=== PATIENT | male | born 1970 | race Caucasian/White ===

== ENCOUNTER 2022-02-18 13:18 | Outpatient (CLI) | payer OTHER, SELFPAY ==
--- NOTE | ~2022-02-18 | PE_ITS ---
EXAMINATION: PET_PETPSMAST_PT DATE: 02/18/2022 15:40 INDICATION: Malignant neoplasm of prostate. Increased PSA. TECHNIQUE: 10.37 mCi of piflufolastat F-18 was administered intravenously. Low dose computed tomograp hy (CT) images were acquired from the base of the brain to the proximal thighs for attenuation correc tion and anatomic localization. Automated exposure control was employed. Dose-length product (DLP) wa s 887 mGy-cm. Positron emission tomography (PET) images were acquired in the same distribution. COMPARISON: None FINDINGS: Head/neck: There are no pathologically enlarged lymph nodes. There is increased activity in the glott is without abnormal CT correlate, likely physiologic. Chest: There is mild emphysema. Calcified right hilar lymph nodes are consistent with old granulomato us disease. There is mild scarring at the lung apices. No pleural effusion. The heart size is normal. No pericardial effusion. There are coronary artery calcifications. Abdomen/pelvis/proximal thighs: The liver and gallbladder are normal. Calcifications in the spleen ar e consistent with old granulomatous disease. The pancreas, adrenal glands, and right kidney are roshan l. There is a 9 mm cyst in left kidney. There is no urolithiasis. There is diverticulosis of the colo n without evidence of diverticulitis. There are no dilated loops of bowel. The appendix is normal. Th ere is a 2.5 x 1.8 cm left external iliac node. There is no free intraperitoneal fluid. There is a le ft inguinal hernia containing fat. There are no sclerotic lesions of bone. IMPRESSION: 1. Enlarged left external iliac node without increased activity suspicious for metastatic disease. Reviewed, dictated and finalized at location A. S OPERATIONS
== END 2022-02-18 13:19 | disposition home or self-care (01) ==
PROVIDERS: PCP Urology; Visit Provider Urology
DX: C61 Malignant neoplasm of prostate (principal)
CPT/HCPCS: 78815; A9595

== ENCOUNTER 2024-10-13 13:42 | Outpatient (CLI) | payer OTHER, SELFPAY ==
--- NOTE | ~2024-10-13 | PE_ITS ---
EXAMINATION: PET_PETPSMAST_PT DATE: 10/13/2024 15:38 INDICATION: Prostate cancer TECHNIQUE: 5.109 mCi of Illucix Ga-[id number]) was administered i.v. Low dose computed rachel graphy (CT) images were acquired from the base of the brain to the base of the brain to the proximal thighs for attenuation correction and anatomic localization. Positron emission tomography (PET) image s were acquired in the same distribution beginning 63 minutes after injection. Images including fused PET/CT images were reconstructed in axial, coronal, and sagittal planes. Automated exposure control technique was employed. The dose-length product was 1284.43mGy-cm. COMPARISON: 06/19/2021 FINDINGS: Head/neck: Typical pattern of symmetric physiologic increased activity in the lacrimal, parotid and submandibula r glands as well as along the mucosa of the nasal and oral cavities, pharynx and hypopharynx. No path ologically enlarged cervical lymphadenopathy or suspicious foci of increased uptake in the visualized head or neck. Chest: Mild emphysema with dependent atelectasis in both lungs. No suspicious pulmonary nodules pleural effu cl mild cardiomegaly. Atherosclerotic coronary artery calcifications. There is subendocardial fat a long the lateral wall of the left ventricle consistent with sequela of chronic infarct. No pericardia l effusion. Calcified right hilar lymph nodes consistent with old granulomatous disease. No pathologi arlyn enlarged or PSMA avid thoracic lymphadenopathy. Abdomen/pelvis/proximal thighs: Physiologic renal accumulation and excretion of activity in the kidneys, bladder and along portions o f ureters. Normal degree and slightly heterogenous pattern of increased uptake throughout the liver a nd spleen without radiologic correlate or dominant PSMA avid lesion. The gallbladder, pancreas and bi lateral adrenal glands are normal. Moderate uptake scattered throughout the bowels with typical duode nal and proximal jejunal predominance and without radiologic correlate, also likely physiologic. Mode rate sized left inguinal hernia. No other abnormal foci of increased uptake or pathologically enlarge d lymphadenopathy in the abdomen, pelvis or proximal thighs. Musculoskeletal: Moderate degenerative skeletal changes in the lower cervical spine at the bilateral acromioclavicular joints. Otherwise mild scattered degenerative skeletal changes. No suspicious lytic, blastic or abno rmally PSMA avid bone lesions. IMPRESSION: 1. No PSMA avid lesions suspicious for residual or metastatic disease. Reviewed, dictated and finalized at location A.
--- OUTSIDE RECORDS SUMMARY | 2024-10-13 13:45 | XMS_ITS | Encounter Summary ---
Author Organization [facility] Address [address] [place] [address] Care Team Providers Care Dispatcher [employer] Disposal Name Role Phone Anni Medina MD Primary Care Provider [phone] Encounter Details Date Type Department Care Team (Late st Contact Info) Description 10/04/2024 Results Follow-Up [facility] [place] [address] [employer] [place] [address] Anni Medina MD [address] [place] [address] [address] LUNG SCREENING (LDCT BASELINE OR ANNUAL) Social History Tobacco Use Types Packs/Day Years Used Date Smoking Tobacco: Every Day Cigarettes 1 40 Smokeless Tobacco: Never Alcohol Use Standard Drinks/Week Comments Not Currently 0 (1 standard drink = 0.6 oz pur e alcohol) Sex and Gender Information Value Date Recorded Sex Assigned at Not on file Legal Sex Male 4:56 AM CDT Gender Identity Not on file Sexual Orientation Not on file documented as of this encounter Miscellaneous Notes * Result Encounter Note - Mildred sEtrada RN - 10/05/2024 8:30 AM CDT Called patient and relayed message regarding CT results. Patient verbalized understanding. documented in this encounter Plan of Treatment Not on file documented as of this encounter Visit Diagnoses Not on filedocumented in this encounter Care Teams Dispatcher [employer] Disposal Relationship Specialty Start Date End Date Anni Medina MD [address] [place] [address] [place] [address] PCP - General Internal Medicine 08/20/23 documented as of this encounter
--- OUTSIDE RECORDS SUMMARY | 2024-10-13 13:45 | XMS_ITS | Clinical Summary ---
Author Organization [facility] [place] ONLY Address [address] [place] [address] Care Team Providers Care Ice Maker Name Role Phone Anni Medina MD Primary Care Provider [phone] Allergies No known active allergies Medications aspirin (MELITA CHEWABLE) 81 mg Tablet, Chewable Take 81 mg by mouth daily. 3 Active umeclidinium-vi lanteroL (ANORO ELLIPTA) 62.5-25 mcg/actuation Disk with DeviceIndicatio ns:Pulmonary emphysema, unspecified emphysema type (CMS/HCC) Take 1 Puff by inhalation daily. 180 Each 3 4 Active cholecalciferol , Vitamin D3, 50 mcg (2,000 unit) Tablet Take by mouth. Ac tive atorvastatin (LIPITOR) 80 mg tablet Take 1 Tablet (80 mg) by mouth daily. 90 Tablet 5 Active atorvastatin (LIPITOR) 80 mg tablet Take 1 Tablet (80 mg) by mouth daily. 90 Tablet 5 10/06/19 25 Discontin ued(Reord er) Active Problems Problem Noted Date Diagnosed Date Low vitamin B12 level 10/05/2024 Obesity (BMI 30.0-34.9) 10/05/2024 Tubular adenoma of colon 02/01/2024 Overview (02/01/2024): Colonoscopy 01/30/2026: 4 transverse and 2 sigmoid colon- adenomatous polyps 23-polyvalent pneumococcal polysaccharide vaccin e declined 02/24/2023 Atherosclerosis of [place] co ronary artery of [place] heart without angina pectoris 08/21/2022 Overview (02/24/2023): Noted on CT lungs 08/2022 STEMI 04/2022. Stent in place. Pulmonary emphysema 08/21/2022 Multiple subsolid lung nodules less than 6 mm in diameter 08/21/2022 Prostate cancer 08/21/2022 Overview (08/21/2022): Under care Dr. Coleman with injections and surveillance of PSA trending up as of 08/2022 total prostatectomy. Varicose veins of left leg with edema 07/29/2022 STEMI (ST elevation myocardial infarction) 04/09 Tobacco use 04/30/2021 Resolved Problems Problem Noted Date Diagnosed Date Resolved Date Colon cancer screening declined 02/24/2023 02/01/2024 Leg edema, left 07/29/2022 02/24/2023 Tinea pedis of both feet 07/29/2022 Ingrown toenail 07/29/2022 02/24/2023 Onychomycosis 07/29/2022 02/24/2023 Smoker 07/29/2022 02/24/2023 Encounters Date Type Department Care Team Description 10/11/2024 External Device Data STL ABSTRACTION Provider, Abstract 10/05/2024 1:00 PM CDT Procedure visit [facility] [place] [place] [address] [place] [phone] Issue of repeat prescription (Primary Dx) 10/05/2024 Refill [facility] [place] [address] [place] [address] Anni Medina MD 10/04/2024 2:11 PM CDT - 10/04/2024 11:59 PM CDT Hospital Encounter [facility] CT Scan [address] [address] Anni Medina MD Discharge Disposition: Home or Self Care 10/04/2024 Results Follow-Up [facility] [place] [address] [place] [phone] LUNG SCREENING (LDCT BASELINE OR ANNUAL) 09/20/2024 External Device Data STL ABSTRACTION Provider, Abstract 09/19/2024 External Device Data STL ABSTRACTION Provider, Abstract 08/22/2024 External Device Data STL ABSTRACTION Provider, Abstract 08/21/2024 Results Follow-Up [facility] [employer] [address] [place] [address] nAni Medina MD TSH, LIPID PANEL, VITAMIN B12 LEVEL, Additional followed-up results: 5 08/18/2024 11:20 AM CDT Office Visit [facility] [place] [address] [address] [place] [address] Screening for condition; Bilateral arm pain; Muscle cramping; Low vitamin D level 07/27/2024 External Device Data STL ABSTRACTION Provider, Abstract 07/26/2024 External Device Data STL ABSTRACTION Provider, Abstract from Last 3 Months Immunizations Immunization Administration Dates Next Due (ADACEL/BOOSTRIX)(10 YR UP) TDAP VACCINE, 0.5ML, IM 08/16/2018 Family History Medical History Relation Name Comments No Known Problems Brother No Known Problems Mother No Known Problems Sister Colon Cancer Neg Hx Relation Name Status Comments Brother Alive Father josette Maternal Grandfather Maternal Grandmother Mother Alive Paternal Grandfather Paternal Grandmother Sister Alive Social History Tobacco Use Types Packs/Day Years Used Date Smoking Tobacco: Every Day Cigarettes 1 40 Smokeless Tobacco: Never Tobacco Cessation:Ready to Q uit: Not Asked; Counseling Given: Not Answered Alcohol Use Standard Drinks/Week Comments Not Currently 0 (1 standard drink = 0.6 oz pur e alcohol) Sex and Gender Information Value Date Recorded Sex Assigned at Not on file Legal Sex Male 4:56 AM CDT Gender Identity Not on file Sexual Orientation Not on file Last Filed Vital Signs Vital Sign Reading Time Taken Comments Blood Pressure 112/60 08/18/2024 11:18 AM CDT Pulse 66 02/24/2024 3:03 PM PORTER MARINA Temperature 36.4 C (97.6 F) 02/24/2024 3:03 PM PORTER MARINA Respiratory Rate 18 02/24/2024 3:03 PM PORTER MARINA Oxygen Saturation 98% 02/24/2024 3:03 PM PORTER MARINA Inhaled Oxygen Concentration - - Weight 103.4 kg (228 lb) 08/18/2024 11:18 AM CDT Height 177.8 cm (5' 10) 08/18/2024 11:18 AM CDT Body Mass Index 32.71 08/18/2024 11:18 AM CDT Plan of Treatment Health Maintenance Due Date Last Done Comments HEPATITIS B VACCINES (1 of 3 - 19+ 3-dose series) 1991 FIT-DNA Q 3 years 2017 FIT/FOBT Q 1 year 2017 Flex Sig/CT Colonography Q 5 years 2017 ZOSTER VACCINE (1 of 2) 2022 Preventative Visit- Commercial 03/08/2024 08/16/2018 INFLUENZA VACCINE (#1) 2024 Pre-Diabetes and Diabetes Screening 05/27/202505/27 Lung Cancer Screening 10/04/2025 10/04/2024 , 09/17/2023, 08/17/2022 COLORECTAL SCREENING 01/27/2027 01/28/2024, 01/28/20 24 Colorectal Cancer Screening 01/27/2027 DTAP/TDAP/TD VACCINES (2 - T d or Tdap) 08/16/2028 08/16/2018 Procedures Procedure Name Priority Date/Time Associated Diagnosis Comments CT LUNG SCREENING (LDCT BASELINE OR ANNUAL) Routine 10/04/2024 2:28 PM CDT Smoking history VITAMIN D 25 HYDROXY Routine 08/18/2024 11:04 AM CDT Low vitamin D level CK Routine 08/18/2024 11:04 AM CDT Muscle cramping MAGNESIUM LEVEL Routine 08/18/2024 11:04 AM CDT Muscle cramping COMPREHENSIVE METABOLIC PANEL Routine 08/18/2024 11:04 AM CDT Muscle cramping CBC WITH DIFFERENTIAL Routine 08/18/2024 11:04 AM CDT Screening for condition VITAMIN B12 LEVEL Routine 08/18/2024 11: 04 AM CDT Bilateral arm pain LIPID PANEL Routine 08/18/2024 11:04 AM CDT Screening for condition TSH Routine 08/18/2024 11:04 AM CDT Screening for condition COLONOSCOPY REPORT 01/28/2024 1: 38 PM PORTER MARINA HEMOGLOBIN A1C Routine 05/27/2022 2:46 PM CDT Screening for condition from Last 3 Months or Most Recently Relevant to Health Maintenance Results * CT LUNG SCREENING (LDCT BASELINE OR ANNUAL) (10/04/2024 2:28 PM CDT) Anatomical Region Laterality Modality Chest Computed Tomogra phy 10/04/2024 2:19 PM CDT Impressions 10/04/2024 3:23 PM CDT IMPRESSION: Stable examination. No new or enlarging pulmonary nodule suspicious for lung cancer. Lung-RADS Category 2: Benign appearance or behavior RECOMMENDATIONS: Continue annual screening with LDCT in 12 months. Narrative 10/04/2024 3:[address] LUNG SCREENING (LDCT BASELINE OR ANNUAL) 10/04/2024 2:28 PM DICTATION LOCATION: Location 4 INDICATION: High-risk screening for lung cancer. Greater than 20 pack year smoking history TECHNIQUE: Axial CT images were obtained though the chest without IV contrast using a low-dose technique. Doses expected from this technique are typically less than 3 mGy. CTDIvol of 2.0 mGy and DLP of 71.4 mGy-cm. The examination was performed with the adjustment of mA according to the patient size and/or the use of Iterative reconstruction technique. LIMITATIONS: Low-dose, noncontrast technique limits evaluation of the solid viscera and mediastinum. COMPARISON: 09/17/2023 FINDINGS: PULMONARY FINDINGS: Mild layering secretions in the trachea. Moderate paraseptal and centrilobular emphysema is present. No effusion, abnormal pleural thickening, or pneumothorax. Benign calcified granulomas are present. There are multiple stable small noncalcified pulmonary nodules measuring 5 mm or less. These are annotated in the saved moore images in PACS. There is no new or enlarging pulmonary nodule suspicious for lung cancer. ADDITIONAL FINDINGS: The heart is normal in size without pericardial effusion. Moderate multivessel coronary calcifications are present. Atherosclerotic calcifications are seen of the aorta arch. No enlarged mediastinal or hilar lymph nodes are seen. No focal abnormality in the imaged portions of the upper abdomen within the limitations of a low dose examination. No suspicious lytic or blastic lesions are seen. us Anni Medina MD CT ORDERABLES Final Result * CBC WITH DIFFERENTIAL (08/18/2024 11:04 AM CDT) WBC 6.4 3.8 - 10.8 Thousand/u L [facility] RBC 4.58 4.20 - 5.80 Million/uL [facility] HEMOGLOBIN 14.0 13.2 - 17.1 g/dL [facility] HEMATOCRIT 43.3 38.5 - 50.0 % [facility] MCV 94.5 80.0 - 100.0 fL [facility] MCH 30.6 27.0 - 33.0 pg [facility] MCHC 32.3 32.0 - 36.0 g/dL [facility] Comment: For adults, a slight decrease in the calculated MCHC value (in the range of 30 to 32 g/dL) is most likely not clinically significant; however, it should be interpreted with caution in correlation with other red cell parameters and the patient's clinical condition. RDW 14.2 11.0 - 15.0 % [facility] PLATELETS 286 140 - 400 Thousand/u L [facility] MPV 9.5 7.5 - 12.5 fL [facility] NEUTROPHIL ABSOLUTE 3,699 1,500 - 7,800 cells/uL [facility] LYMPHOCYTE ABSOLUTE 1,837 850 - 3,900 cells/uL [facility] MONOCYTE ABSOLUTE 678 200 - 950 cells/uL [facility] EOSINOPHIL ABSOLUTE 128 15 - 500 cells/uL [facility] BASOPHILS ABSOLUTE 58 0 - 200 cells/uL [facility] NEUTROPHIL 57.8 % [facility] LYMPHOCYTES 28.7 % [facility] MONOCYTE 10.6 % [facility] EOSINOPHILS 2.0 % [facility] BASOPHILS 0.9 % [facility] Comment: Test Performed at: [facility] [address] [place] [address] Antwan Soto Blood 08/18/2024 11:0 4 AM CDT 08/19/2024 2:16 AM CDT us Anni Medina MD HEMATOLOGY ORDERABLES Final Re sult [facility] [phone] [facility] [address] [place] [address] * VITAMIN D 25 HYDROXY (08/18/2024 11:04 AM CDT) VITAMIN D, 25 OH, TOTAL 40 30 - 100 ng/mL [facility] Comment: Vitamin D Status 25-OH Vitamin D: Deficiency: <20 ng/mL Insufficiency: 20 - 29 ng/mL Optimal: > or = 30 ng/mL For 25-OH Vitamin D testing on patients on D2-supplementation and patients for whom quantitation of D2 and D3 fractions is required, the [facility](TM) 25-OH VIT D, (D2,D3), LC/MS/MS is recommended: order code 77988 (patients >2yrs). See Note 1 Note 1 For additional information, please refer to http://education.[employer]/faq/FUU243 (This link is being provided for informational/ educational purposes only.) Test Performed at: [facility] [address] [address] Antwan Soto MD Blood 08/18/2024 11:0 4 AM CDT 08/19/2024 2:17 AM CDT us Anni Medina MD CHEMISTRY ORDERABLES Final Res ult [address] [facility] [phone] [facility] [address] [address] * TSH (08/18/2024 11:04 AM CDT) Pathologist [facility] TSH 1.10 0.40 - 4.50 mIU/L [facility] Comment: Test Performed at: [place] [address] [address] [place] [address] [facility] Vo Blood 08/18/2024 11:0 4 AM CDT 08/19/2024 2:16 AM CDT Anni Median MD CHEMISTRY ORDERABLES Final Res ult [facility] [phone] [place] [address] [place] [address] * MAGNESIUM LEVEL (08/18/2024 11:04 AM CDT) Pathologist [facility] MAGNESIUM 2.0 1.5 - 2.5 mg/dL [facility] Comment: Test Performed at: [place] [address] [place] [address] [facility] Vo Blood 08/18/2024 11:0 4 AM CDT 08/19/2024 2:17 AM CDT us Anni Medina MD CHEMISTRY ORDERABLES Final Res ult Performing Organization Address City/[facility]/ZIP Code Phone Number [facility] [phone] [place] [address] [place] [address] * VITAMIN B12 LEVEL (08/18/2024 11:04 AM CDT) Pathologist [facility] VITAMIN B12 339 200 - 1100 pg/mL [facility] Comment: Please Note: Although the reference range for vitamin B12 is 200-1100 pg/mL, it has been reported that between 5 and 10% of patients with values between 200 and 400 pg/mL may experience neuropsychiatric and hematologic abnormalities due to occult B12 deficiency; less than 1% of patients with values above 400 pg/mL will have symptoms. Test Performed at: [facility] [address] [place] [address] YasAndra Soto MD Blood 08/18/2024 11:0 4 AM CDT 08/19/2024 2:19 AM CDT us Anni Medina MD CHEMISTRY ORDERABLES Final Res ult Performing Organization Address City/State/ZIP Co vt Phone Number [facility] [phone] [facility] [address] [place] [address] * CK (08/18/2024 11:04 AM CDT) CK 101 23 - 325 U/L [facility] Comment: Test Performed at: [place] [address] [place] [address] Antwan Soto Blood 08/18/2024 11:0 4 AM CDT 08/19/2024 2:17 AM CDT us Anni Medina MD CHEMISTRY ORDERABLES Final Res ult Performing Organization Address City/[facility] Phone Number [facility] [phone] [place] [address] [place] [address] * LIPID PANEL (08/18/2024 11:04 AM CDT) CHOLESTEROL 124 <200 mg/dL [facility] HDL 47 > OR = 40 mg/dL [facility] TRIGLYCERIDE 49 <150 mg/dL [facility] LDL CALCULATED 63 mg/dL (calc) [facility] Comment: Reference range: <100 Desirable range <100 mg/dL for primary prevention; <70 mg/dL for patients with CHD or diabetic patients with > or = 2 CHD risk factors. LDL-C is now calculated using the Mayo calculation, which is a validated novel method providing better accuracy than the Friedewald equation in the estimation of LDL-C. Kendall SS et al. JEFERSON. 2013;310(19): 1140-6024 (http://education.[employer]/faq/ROD329) CHOL/HDL RATIO 2.6 <5.0 (calc) [facility] NON-HDL CHOLESTEROL 77 <130 mg/dL (calc) [facility] Comment: For patients with diabetes plus 1 major ASCVD risk factor, treating to a non-HDL-C goal of <100 mg/dL (LDL-C of <70 mg/dL) is considered a therapeutic option. Test Performed at: [place] [address] [address] [place] [address] Antwan Soto Blood 08/18/2024 11:0 4 AM CDT 08/19/2024 2:16 AM CDT us Anni Medina MD CHEMISTRY ORDERABLES Final Res ult [facility] [phone] [place] [address] [address] [place] [place] [address] * (ABNORMAL) COMPREHENSIVE METABOLIC PANEL (08/18/2024 11:04 AM CDT) GLUCOSE 103(H) 65 - 99 mg/dL [facility] Comment: Fasting reference interval For someone without known diabetes, a glucose value between 100 and 125 mg/dL is consistent with prediabetes and should be confirmed with a follow-up test. BUN 14 7 - 25 mg/dL [facility] CREATININE 0.81 0.70 - 1.30 mg/dL [facility] GFR 106 > OR = 60 mL/min/1. 73m2 [facility] BUN/CREAT RATIO SEE NOTE: 6 - 22 (calc) [facility] Comment: Not Reported: BUN and Creatinine are within reference range. SODIUM 140 135 - 146 mmol/L [facility] POTASSIUM 4.4 3.5 - 5.3 mmol/L [facility] CHLORIDE 107 98 - 110 mmol/L [facility] CO2 23 20 - 32 mmol/L [facility] CALCIUM 9.1 8.6 - 10.3 mg/dL [facility] TOTAL PROTEIN 5.9(L) 6.1 - 8.1 g/dL [facility] ALBUMIN 4.2 3.6 - 5.1 g/dL [facility] GLOBULIN 1.7(L) 1.9 - 3.7 g/dL (calc) [facility] ALBUMIN/GLOBULIN RATIO 2.5 1.0 - 2.5 (calc) [facility] BILIRUBIN TOTAL 0.8 0.2 - 1.2 mg/dL [facility] ALKALINE PHOSPHATASE 74 35 - 144 U/L [facility] AST 14 10 - 35 U/L [facility] ALT 22 9 - 46 U/L [facility] Comment: Test Performed at: [place] [address] [place] [address] Antwan Soto Blood 08/18/2024 11:0 4 AM CDT 08/19/2024 2:17 AM CDT us Anni Medina MD CHEMISTRY ORDERABLES Final Res ult [facility] [phone] [place] [address] [place] [address] * COLONOSCOPY REPORT (01/28/2024 1:38 PM PORTER MARINA) Narrative Procedure Note Akil Martinez MD - 01/28/2024 1:38 PM CST [facility] Endoscopy Patient Name: Lino Love Procedure Date: 01/28/2024 Date of : 1970 Attending MD: Akil Martinez MD, Procedure: Colonoscopy Indications: Screening for colorectal malignant neoplasm Patient Profile: 53y/oF M here for initial average risk screening colonoscopy. Providers: Akil Martinez MD Referring MD: Anni Medina MD Medicines: Monitored Anesthesia Care Complications: No immediate complications. Procedure: Informed consent was obtained for the procedure, including moderate sedation after risks were discussed. Based on the pre-procedure assessment, including review of the patient's medical history, medications, allergies, and review of systems, the patient was deemed to be an appropriate candidate for sedation. A timeout was performed. Continuous ECG monitoring, pulse oximetry, blood pressure monitoring, and direct observation were performed. The Colonoscope was introduced through the anus and advanced to the cecum, identified by appendiceal orifice and ileocecal valve. The colonoscopy was performed without difficulty. The patient tolerated the procedure well. The quality of the bowel preparation was good. The ileocecal valve, appendiceal orifice, and rectum were photographed. Estimated Blood Loss: Estimated blood loss: none. Findings: The perianal and digital rectal examinations were normal. A 5 mm polyp was found in the ascending colon. The polyp was sessile. The polyp was removed with a cold snare. Resection and retrieval were complete. Four sessile polyps were found in the transverse colon. The polyps were 3 to 9 mm in size. These polyps were removed with a cold snare. Resection and retrieval were complete. Four sessile polyps were found in the sigmoid colon. The polyps were less than 5 mm in size. These polyps were removed with a cold snare. Resection and retrieval were complete. A 1 mm polyp was found in the sigmoid colon. The polyp was sessile. The polyp was removed with a jumbo cold forceps. Resection and retrieval were complete. Internal hemorrhoids were found during retroflexion. The hemorrhoids were medium-sized. The exam was otherwise without abnormality. Impression: - One 5 mm polyp in the ascending colon, removed with a cold snare. Resected and retrieved. - Four 3 to 9 mm polyps in the transverse colon, removed with a cold snare. Resected and retrieved. - Four less than 5 mm polyps in the sigmoid colon, removed with a cold snare. Resected and retrieved. - One 1 mm polyp in the sigmoid colon, removed with a jumbo cold forceps. Resected and retrieved. - Internal hemorrhoids. - The examination was otherwise normal. Recommendation: - Patient has a contact number available for emergencies. The signs and symptoms of potential delayed complications were discussed with the patient. Return to normal activities tomorrow. Written discharge instructions were provided to the patient. - Discharge patient to home (ambulatory). - Resume previous diet. - Continue present medications. - Await pathology results. - Repeat colonoscopy 1-3 years for surveillance based on pathology results. - I will message you through [facility] when your pathology results. Akil Martinez MD 01/28/2024 1:38:32 PM This report has been signed electronically. Number of Addenda: [phone]; [place] [address] Akil Martinez MD GI PROCEDURE ORDERABLES Lizbeth l Result * HEMOGLOBIN A1C (05/27/2022 2:46 PM CDT) HEMOGLOBIN A1C 5.5 <5.7 % of total Hgb [facility] Comment: For the purpose of screening for the presence of diabetes: <5.7% Consistent with the absence of diabetes 5.7-6.4% Consistent with increased risk for diabetes (prediabetes) > or =6.5% Consistent with diabetes This assay result is consistent with a decreased risk of diabetes. Currently, no consensus exists regarding use of hemoglobin A1c for diagnosis of diabetes in children. According to [place] Diabetes Association (ADA) guidelines, hemoglobin A1c <7.0% represents optimal control in non- diabetic patients. Different metrics may apply to specific patient populations. Standards of Medical Care in Diabetes(ADA). Test Performed at: [place] [address] [address] Antwan Soto MD Blood 05/27/2022 2:46 PM CDT 05/27/2022 4:47 AM CDT Anne Fay MD CHEMISTRY ORDERABLES Final Re sult [facility] [phone] [facility] [address] [phone] from Last 3 Months or Most Recently Relevant to Health Maintenance [facility] OPEN ACCESS Advance Directives For more information, please contact: [phone] * Full Code (Latest Code Status on File) Date Activated Date Inactivated Comments 01/28/2024 12:32 PM 01/28/2024 5:38 PM Care Teams Ice Maker Relationship Specialty Start Date End Date Anni Medina MD [address] [place] [address] [place] [address] PCP - General Internal Medicine 08/20/23
--- OUTSIDE RECORDS SUMMARY | 2024-10-13 13:45 | XMS_ITS | Encounter Summary ---
Author Organization [facility] Address [address] [place] [address] Care Team Providers Care Network Associate Name Role Phone Anni Medina MD Primary Care Provider [phone] Encounter Details Date Type Department Care Team (Late st Contact Info) Description 08/21/2024 Results Follow-Up [facility] [employer] [place] [address] [place] [address] Anni Medina MD [address] [place] [address] TSH, LIPID PANEL, VITAMIN B12 LEVEL, Additional followed-up results: 5 Social History Tobacco Use Types Packs/Day Years [...] Notes * Result Encounter Note - Mildred Estrada RN - 08/22/2024 9:30 AM CDT Called patient and relayed message regarding lab results. Patient verbalized understanding. documented in this encounter Plan of Treatment Not on file documented as of this encounter Visit Diagnoses Diagnosis Low vitamin B12 level- Primary Other B-complex deficiencies documented in this encounter Care Teams Network Associate Relationship Specialty Start Date End Date Anni Medina MD [address] [place] [address] [place] [address] PCP - General Internal Medicine 08/20/23 documented as of this encounter
--- OUTSIDE RECORDS SUMMARY | 2024-10-13 13:45 | XMS_ITS | Clinical Summary ---
Author Organization [facility] Address [address] [place] [id number] Care Team Providers Care Sql Programmer Name Role Phone Grazyna Edge MD Primary Care Provider [phone] Allergies No known active allergies Medications No known medications Active Problems No known active problems Social History Tobacco Use Types Packs/Day Years Used Date Smoking Tobacco: Never Assessed Sex and Gender Information Value Date Recorded Sex Assigned at Not on file Legal Sex Male 12:06 PM [employer] Gender Identity Not on file Sexual Orientation Not on file Obstetrics History Plan of Treatment Health Maintenance Due Date Last Done Comments Colon Cancer Screening-Colonoscopy 1972 Depression Screening 1972 Hepatitis C Screening 1972 Prostate Cancer Screening-PSA 1972 Hepatitis B Screening 1990 Regular Well Visit/Exam 18-64 1990 Pneumococcal vaccine <65 (1 of 2 - PCV) 1991 Zoster Vaccine (1 of 2) 2022 Influenza Vaccine (#1) 2024 DTaP/Tdap/Td Vaccine (2 - Td or Tdap) 08/16/202801/2019 Insurance [employer] OPEN ACCESS [employer] AL[employer]GIANCE Care Teams Sql Programmer Relationship Specialty Start Date End Date Grazyna Edge MD [address] [address] PCP - General Family Medicine 02/20/21
--- OUTSIDE RECORDS SUMMARY | 2024-10-13 13:45 | XMS_ITS ---
Author Organization [facility] Address [address] [place] [id number] Care Team Providers Care Perinatal Director Name Role Phone Anni Medina MD Primary Care Provider [phone] Active Problems Problem Noted Date Diagnosed Date Low vitamin B12 level 10/05/2024 Obesity (BMI 30.0-34.9) 10/05/2024 Tubular adenoma of colon 02/01/2024 Overview (02/01/2024): Colonoscopy 01/30/2026: 4 transverse and 2 sigmoid colon- adenomatous polyps 23-polyvalent pneumococcal polysaccharide vaccin e declined 02/24/2023 Atherosclerosis of [place] co ronary artery of [place] heart without angina pectoris 08/21/2022 Overview (02/24/2023): [...] elevation myocardial infarction) 04/09 Tobacco use 04/30/2021 Current Treatment and Therapy Plans No current plan information found. Past Treatment and Therapy Plans No past plan information found. Lifetime Dose Tracking * Chemical Lifetime Dose Automatic Entry Manual Entr y Effective Dose 2.37 mSv 2.37 mSv 0 mSv Total DLP 151.18 DLP 151.18 DLP 0 DLP CTDIvol Max 4 mGy 4 mGy 0 mGy Resolved Problems Problem Noted Date Diagnosed Date Resolved Date Colon cancer screening declined 02/24/2023 02/01/2024 Leg edema, left 07/29/2022 02/24/2023 Tinea pedis of both feet 07/29/2022 Ingrown toenail 07/29/2022 02/24/2023 Onychomycosis 07/29/2022 02/24/2023 Smoker 07/29/2022 02/24/2023
== END 2024-10-13 13:43 | disposition home or self-care (01) ==
PROVIDERS: PCP Urology; Visit Provider Nurse Practitioner
DX: C61 Malignant neoplasm of prostate (principal)
CPT/HCPCS: 78815; A9552; A9596